=== PATIENT | female | born 1970 | race Caucasian/White ===

== ENCOUNTER 2019-10-18 13:13 | Inpatient (IN) ==
[2019-10-18 15:47] LABS: BASOPHILS % (AUTO) 0 % (0.2-1.0); HEMATOCRIT 41.5 % (36.0-47.0); HEMOGLOBIN 13.9 g/dL (12.0-16.0); LYMPHOCYTES # (AUTO) 0.5 X10^3/uL (1.3-2.9); MEAN CORPUSCULAR HEMOGLOBIN 30.2 pg (27.0-34.0); MEAN CORPUSCULAR HGB CONC 33.4 g/dL (33.0-35.0); MEAN CORPUSCULAR VOLUME 90.4 fL (80.0-100.0); MEAN PLATELET VOLUME 7.7 fL (7.4-11.0); MONOCYTES # (AUTO) 0.7 x10^3/uL (0.3-0.8); NEUTROPHILS # (AUTO) 1.2 x10^3/uL (2.2-4.8); PLATELET COUNT 77 X10^3/uL (150.0-450.0); RED BLOOD COUNT 4.59 X10^6/uL (3.5-5.4); RED CELL DISTRIBUTION WIDTH 17.4 % (11.6-16.5); WHITE BLOOD COUNT 2.4 X10^3/uL (3.6-10.0)
--- NOTE | 2019-10-18 15:57 | RAD ---
HISTORYPLEURITIC PAIN, N/VSTUDYCHEST, 1 VIEWCOMPARISONNone availableFINDINGSThe trachea is midline. The cardiac silhouette is unremarkable . The lungs are clear without focal infiltrate or effusion. The bony thorax is unremarkable.[Left-sided subclavian central venous catheter has its tip terminating within the upper SVC.]IMPRESSIONNo acute cardiopulmonary disease.Electronically signed by: OWEN FOREMAN (Oct 18, 2019 15:55:18)
[2019-10-18 16:16] LABS: ALANINE AMINOTRANSFERASE 18 Units/L (12-78); ALBUMIN 4.1 g/dL (3.4-5.0); ALKALINE PHOSPHATASE 68 Units/L (46-116); ASPARTATE AMINO TRANSFERASE 23 Units/L (15-37); BLOOD UREA NITROGEN 5 mg/dL (7-18); CALCIUM 9.3 mg/dL (8.5-10.1); CHLORIDE 103 mmol/L (98-107); CREATININE 1.11 mg/dL (0.55-1.02); SODIUM 142 mmol/L (136-145); TOTAL PROTEIN 7.6 g/dL (6.4-8.2); eGFR NON BLACK RACES 55 (>60)
[2019-10-18 16:30] LABS: BAND NEUTROPHILS % 1 % (0-10)
[2019-10-18 16:31] LABS: PLATELET MORPHOLOGY COMMENT NORMAL (NORMAL); POIKILOCYTOSIS SLIGHT
[2019-10-18] MEDS ORDERED: KLOR-CON PO PRN (16:33)
[2019-10-18] MEDS ORDERED: MICRO K EXTEN CAP 10 MEQ PO PRN (16:33)
[2019-10-18] MEDS ORDERED: POTASSIUM CHL 60 MEQ/NS 0.45% 500 ML IV PRN (16:33)
[2019-10-18] MEDS ORDERED: K-DUR TAB 20 MEQ PO PRN (16:33)
[2019-10-18] MEDS ORDERED: POTASSIUM CHL 40 MEQ/NS 0.45% 500 ML IV PRN (16:33)
[2019-10-18] MEDS ORDERED: POTASSIUM CHLORIDE LIQ 20 MEQ UDC PO PRN (16:33)
[2019-10-18] MEDS: NS 1000 ML 1,000 ML IV SCH (16:57)
[2019-10-18] MEDS: PHENERGAN INJ 25 MG IM PRN (16:59)
[2019-10-18 17:06] VITALS: BMI 19.1
[2019-10-18] MEDS: MAGNESIUM SULFATE 1 GRAM/100 mL PREMIX 1 GM/100 ML BAG IV PRN ×2 (17:10→18:27)
[2019-10-18] MEDS: MORPHINE SULFATE INJ 2 MG INJ IVP PRN ×2 (19:53→23:35)
[2019-10-18] MEDS: K-RIDER 10 MEQ/NS 100 ML 10 MEQ/100 ML BAG IV PRN ×2 (19:55→22:22)
[2019-10-18] MEDS: PROTONIX INJ 40 MG VIAL IVP SCH (21:22)
--- NOTE | 2019-10-18 22:35 | DR.H&P ---
H&P - History & Physical for Day of: H&P Date: 10/18/19 - Chief Complaint Chief Complaint: Nausea, vomiting with abdominal pain and fatique - History of Present Illness History of Present Illness: The patient is a 49yo WF who presents to [facility] with continued complaints of nausea, vomiting and abdominal pain. Complains of pain across upper abdomen. States she feels weak. Patient has history of metastatic colon cancer. Was recenty switched to another chemo tablet and since that time developed N/V/D and abdominal pain. Patient has stopped chemo tab x 3 weeks with no improvement of symptoms. Has received IVFs x 2 in office setting over last week. Is unable to keep new meds prescribed (Prilosec, Carafate). Previously had low potassium but was unable to keep tabs down. Denies fever. - Past Medical History Additional Medical History: Metastatic colon cancer (Lungs) - Past Surgical History Surgical History: Bowel Resection, Other - Family History Family Medical History: Hypertension - Social History Does patient currently use any type of tobacco product: No Have you used tobacco products in the last 12 months: No Type of Tobacco Use: None Does any household member use tobacco: No Alcohol Use: None Drug Use: None Prescription drug monitoring program results: PDMP reviewed and no concerns identified - Medications Home Medications: metoclopramide [From Reglan] Allergy (Verified 10/18/19 17:07) CONTINUE taking the following medications hydrocodone-acetaminophen 1 tab PO Q4H PRN 10/18/19 [History] sertraline 100 mg PO HS 10/18/19 [History] zolpidem 10 mg PO HS 10/18/19 [History] - Review of Systems Constitutional: Malaise Eyes: No Symptoms Reported ENT: No Symptoms Reported Respiratory: No Symptoms Reported Cardiovascular: No Symptoms Reported Gastrointestinal: See HPI, Nausea, Vomiting, Abdominal Pain, Diarrhea Genitourinary: No Symptoms Reported Musculoskeletal: Other (rib pain) Skin: No Symptoms Reported Neurological: No Symptoms Reported - Physical Exam Vital Signs: Temperature 98.2 F Pulse Rate [Left Brachial] 76 Respiratory Rate 18 Blood Pressure [Left Arm] 137/81 O2 Sat by Pulse Oximetry 100 Oriented: Normal Eyes: Normal Ear: Normal Nose: Normal Throat: Normal Respiratory: Clear Throughout Cardiovascular: Normal : Normal Auscultation: Bowel Sounds: Normal Palpation: Normal Tenderness: RUQ, LUQ, Epigastric, Moderate Skin: Decreased Turgur Musculoskeletal: Normal Psychiatric: Normal Mood Description: Calm Affect: Normal Speech Pattern: Clear - Assessment/Plan (1) Dehydration Status: Acute Plan: Labs, IV hydration (2) Hypokalemia Status: Acute Plan: Labs Supplementation as needed (3) Nausea & vomiting Status: Acute Plan: Phenergan IV, IV fluids, Clear Liquid Diet (4) Abdominal pain Status: Acute Plan: CT Abd/Pelvis with contrast (5) Metastatic colon cancer in female Status: Acute - Allergies Allergies/Adverse Reactions: Allergies Allergy/AdvReac Type Severity Reaction Status Date / Time metoclopramide [From Reglan] Allergy Verified 10/18/19 17:07
[2019-10-18] MEDS ORDERED: AMBIEN ONE (23:56)
[2019-10-19] MEDS: PHENERGAN INJ 25 MG IM PRN ×3 (00:01→19:53)
[2019-10-19] MEDS: AMBIEN PO PRN ×2 (00:01→21:07)
[2019-10-19] MEDS: K-RIDER 10 MEQ/NS 100 ML 10 MEQ/100 ML BAG IV PRN ×4 (00:02→03:30)
[2019-10-19] MEDS ORDERED: NORCO 7.5/325 MG TAB PO ONE (03:25)
[2019-10-19] MEDS ORDERED: NORCO 7.5/325 MG TAB ONE (03:27)
[2019-10-19 03:47] LABS: BILIRUBIN,URINE NEGATIVE (NEGATIVE); BLOOD/HEMOGLOBIN,URINE NEGATIVE (NEGATIVE); GLUCOSE, URINE NEGATIVE (NEGATIVE); KETONES,URINE NEGATIVE (NEGATIVE); LEUKOCYTE ESTERASE ,URINE NEGATIVE (NEGATIVE); NITRITES,URINE NEGATIVE (NEGATIVE); PROTEIN,URINE NEGATIVE (NEGATIVE); UROBILINOGEN,URINE NORMAL (NORMAL)
[2019-10-19 03:49] LABS: APPEARANCE,URINE CLEAR (CLEAR); COLOR,URINE PALE YELLOW (YELLOW)
[2019-10-19] MEDS: NS 1000 ML 1,000 ML IV SCH ×3 (05:03→16:05)
[2019-10-19 05:38] LABS: BASOPHILS % (AUTO) 0.5 % (0.2-1.0); EOSINOPHILS % (AUTO) 0.5 % (0.9-2.9); HEMATOCRIT 40.1 % (36.0-47.0); HEMOGLOBIN 13.5 g/dL (12.0-16.0); LYMPHOCYTES # (AUTO) 1.2 X10^3/uL (1.3-2.9); LYMPHOCYTES % (AUTO) 51.6 % (21.0-51.0); MEAN CORPUSCULAR HEMOGLOBIN 30.5 pg (27.0-34.0); MEAN CORPUSCULAR HGB CONC 33.7 g/dL (33.0-35.0); MEAN CORPUSCULAR VOLUME 90.4 fL (80.0-100.0); MEAN PLATELET VOLUME 7.7 fL (7.4-11.0); MONOCYTES # (AUTO) 0.3 x10^3/uL (0.3-0.8); MONOCYTES % (AUTO) 10.9 % (0.0-13.0); NEUTROPHILS # (AUTO) 0.8 x10^3/uL (2.2-4.8); NEUTROPHILS % (AUTO) 36.5 % (42.0-75.0); PLATELET COUNT 79 X10^3/uL (150.0-450.0); RED BLOOD COUNT 4.44 X10^6/uL (3.5-5.4); WHITE BLOOD COUNT 2.3 X10^3/uL (3.6-10.0)
[2019-10-19 05:39] LABS: ALANINE AMINOTRANSFERASE 18 Units/L (12-78); ALBUMIN 3.8 g/dL (3.4-5.0); ALKALINE PHOSPHATASE 64 Units/L (46-116); ASPARTATE AMINO TRANSFERASE 26 Units/L (15-37); BLOOD UREA NITROGEN 4 mg/dL (7-18); CARBON DIOXIDE 28.2 mmol/L (21-32); CHLORIDE 105 mmol/L (98-107); CREATININE 1.12 mg/dL (0.55-1.02); MAGNESIUM 2.2 mg/dL (1.7-2.9); SODIUM 142 mmol/L (136-145); TOTAL PROTEIN 7.2 g/dL (6.4-8.2); eGFR NON BLACK RACES 55 (>60)
[2019-10-19 05:56] LABS: PLATELET MORPHOLOGY COMMENT NORMAL (NORMAL)
[2019-10-19] MEDS: PROTONIX INJ 40 MG VIAL IVP SCH ×2 (08:59→21:06)
--- NOTE | 2019-10-19 09:00 | CT ---
HISTORYUPPER ABD PAIN, history of colon cancer with colon resection and cholecystectomy.STUDYABDOMEN/PELVIS WITH CONCOMPARISONNoneTECHNIQUEMultiple axial images of the abdomen and pelvis were obtained from the lung bases to the pubic symphysis after the administration of IV contrast. Dose reduction techniques including Automated Exposure Control (AEC) and adjustment of mA and kV were utilized.FINDINGSThere is a lobular possibly partially cavitary nodule right lung base measuring 1 cm seen on image 2. There are small broad-based a mildly spiculated nodule is seen measuring 7 by 6 mm on image 8 another nodular density that appears cavitary is seen on image 11 right lower lobe medially measuring 8 mm. Pleural nodules posteriorly bilaterally. The liver, spleen, pancreas, kidneys, and adrenal glands are unremarkable in their CT appearance. The gallbladder surgically absent and there are surgical clips in the gallbladder fossa.. No significant mesenteric lymphadenopathy or stranding can be observed. The abdominal aorta and IVC are normal there is no aneurysm or retroperitoneal adenopathy. No free fluid or free air is seen within the abdomen. No bowel wall thickening is present. The jejunum is well opacified with oral contrast and normal in caliber. The ileum is fluid filled and the contrast has not yet reached the ileum the ileal bowel loops are mildly distended at 3 cm in the pelvis. A short segment of ileal narrowing is seen on image 72 on the axial images this may represent a stricture or an adhesion causing early or mild small bowel obstruction. The patient has undergone a right hemicolectomy. This surgical anastomosis in the right upper quadrant just inferior to the liver appears patent. The colon is normal in caliber without obstruction or wall thickening. Diverticulosis without diverticulitis is seen in the pelvis. The bladder is unremarkable. The uterus is unremarkable. The inguinal femoral region is normal. The colon is unremarkable. Specifically, there is no diverticulosis noted within the sigmoid colon. The urinary bladder is grossly unremarkable. The bony structures are grossly intact.IMPRESSIONMultiple very small bilateral posterior pleural based nodules with 2 cavitary nodule and 1 non cavitary nodule in the right lower lobe suspicious for metastatic foci.Status post cholecystectomy and right hemicolectomy.The ileal colonic anastomosis in the right upper quadrant appears patent.There is sigmoid diverticulosis without diverticulitis.Mild ileal distended fluid filled ileal loops are observed there is a ileal loop that appears narrowed over a length of 1.8 cm that may be a stricture this lies in the right lower quadrant just anterior to the iliac vessels and may be a site of partial or early small bowel obstruction see axial image 72 coronal image 15 and 14. Maximal distention of the terminal ileal loops is 3 cm. Recommend short interval follow-up radiographically with plain filmsElectronically signed by: MARLO FAY (Oct 19, 2019 08:59:36)
[2019-10-19 09:54] LABS: AMYLASE 38 Units/L (25-115); LIPASE 103 Units/L (73-393)
[2019-10-19] MEDS: NORCO 10/325 TAB PO PRN ×2 (13:43→21:07)
[2019-10-19] MEDS ORDERED: ZOLOFT PO ONE (20:11)
[2019-10-19] MEDS: ZOLOFT PO SCH (21:06)
[2019-10-19 21:58] LABS: CRYPTOSPORIDIUM PARVUM ANTIGEN NEGATIVE (NEGATIVE); GIARDIA LAMBLIA ANTIGEN NEGATIVE (NEGATIVE)
[2019-10-20 05:50] LABS: BASOPHILS % (AUTO) 0.6 % (0.2-1.0); EOSINOPHILS % (AUTO) 0.8 % (0.9-2.9); HEMATOCRIT 36.4 % (36.0-47.0); HEMOGLOBIN 12.2 g/dL (12.0-16.0); LYMPHOCYTES # (AUTO) 1.3 X10^3/uL (1.3-2.9); LYMPHOCYTES % (AUTO) 51.1 % (21.0-51.0); MEAN CORPUSCULAR HEMOGLOBIN 30.7 pg (27.0-34.0); MEAN CORPUSCULAR HGB CONC 33.6 g/dL (33.0-35.0); MEAN CORPUSCULAR VOLUME 91.4 fL (80.0-100.0); MEAN PLATELET VOLUME 8.1 fL (7.4-11.0); MONOCYTES # (AUTO) 0.3 x10^3/uL (0.3-0.8); MONOCYTES % (AUTO) 10.1 % (0.0-13.0); NEUTROPHILS # (AUTO) 0.9 x10^3/uL (2.2-4.8); NEUTROPHILS % (AUTO) 37.4 % (42.0-75.0); PLATELET COUNT 75 X10^3/uL (150.0-450.0); RED BLOOD COUNT 3.98 X10^6/uL (3.5-5.4); RED CELL DISTRIBUTION WIDTH 17.1 % (11.6-16.5); WHITE BLOOD COUNT 2.5 X10^3/uL (3.6-10.0)
[2019-10-20 06:04] LABS: ALANINE AMINOTRANSFERASE 18 Units/L (12-78); ALBUMIN 3.3 g/dL (3.4-5.0); ALKALINE PHOSPHATASE 52 Units/L (46-116); ASPARTATE AMINO TRANSFERASE 27 Units/L (15-37); BLOOD UREA NITROGEN 4 mg/dL (7-18); CALCIUM 8.4 mg/dL (8.5-10.1); CARBON DIOXIDE 27.1 mmol/L (21-32); CHLORIDE 108 mmol/L (98-107); CREATININE 1.07 mg/dL (0.55-1.02); SODIUM 143 mmol/L (136-145); TOTAL PROTEIN 6.2 g/dL (6.4-8.2); eGFR NON BLACK RACES 57 (>60)
[2019-10-20] MEDS: NS 1000 ML 1,000 ML IV SCH ×2 (06:57→18:18)
[2019-10-20] MEDS: PROTONIX INJ 40 MG VIAL IVP SCH ×2 (09:20→20:37)
--- NOTE | 2019-10-20 09:28 | RAD ---
Exam:KUBIndication: ABD PAIN, ABNORMAL CT, ILEUS VS. SBOComparison: [None available]Findings: [The bowel gas pattern is unremarkable, specifically there is no radiographic evidence to suggest an obstruction. Contrast is noted opacifying the transverse colon. No free air or pneumatosis.No definite mass or abnormal calcification within the abdomen or pelvis.No acute osseous abnormality. Previous cholecystectomy is noted.Impression:Nonspecific bowel gas pattern, specifically no evidence of obstruction or convincing evidence of an ileus.Electronically signed by: OWEN FOREMAN (Oct 20, 2019 09:26:59)
[2019-10-20] MEDS: ZOFRAN INJ 4 MG VIAL IVP PRN ×2 (09:29→16:45)
--- NOTE | 2019-10-20 12:32 | DR.PROGNOT ---
Hospital Progress Notes - Progress Note for Day of: Progress Note Date: 10/20/19 - Chief Complaint Chief Complaint: c/o severe nausea today . could not tolerate food , no vomiting . c/o upper and mid abdominal pain. abdominal xray showed no obstruction . - Past Medical Family Social History Past Med/Fam/Surg Hx: No changes since H&P Allergies: Allergies metoclopramide [From Reglan] Allergy (Verified 10/18/19 17:07) - Review Of Systems ROS: No change since H&P - Vital Signs Vital Signs: Temperature 98.5 F Pulse Rate [Left Brachial] 52 Respiratory Rate 18 Blood Pressure [Left Arm] 141/85 O2 Sat by Pulse Oximetry 98 - Physical Exam Oriented: Normal Eyes: Normal Ear: Normal Nose: Normal Throat: Normal Cardiovascular: Normal : Normal GI:Auscultation: Normal GI:Palpation: Normal GI: Tenderness: Other (soft, flat abdomen with moderate epigastric and LUQ tenderness , no rebound . BS+) Skin: Decreased Turgur Musculoskeletal: Normal Psychiatric: Normal Mood Description: Calm Affect: Normal Speech Pattern: Clear, Appropriate - Laboratory and Diagnostics Result Diagrams: 10/20/19 04:25 10/20/19 04:25 Labs: 10/18/19 15:12 Blood Blood Culture - Preliminary 10/18/19 15:07 Blood Blood Culture - Preliminary 10/19/19 20:15 Stool - Final Laboratory WBC 2.5 X10^3/uL (3.6-10.0) L 10/20/19 04:25 RBC 3.98 X10^6/uL (3.5-5.4) 10/20/19 04:25 Hgb 12.2 g/dL (12.0-16.0) 10/20/19 04:25 Hct 36.4 % (36.0-47.0) 10/20/19 04:25 MCV 91.4 fL (80.0-100.0) 10/20/19 04:25 MCH 30.7 pg (27.0-34.0) 10/20/19 04:25 MCHC 33.6 g/dL (33.0-35.0) 10/20/19 04:25 RDW 17.1 % (11.6-16.5) H 10/20/19 04:25 Plt Count 75 X10^3/uL (150.0-450.0) L 10/20/19 04:25 Plt Count Comment Decreased (ADEQUATE) A 10/19/19 04:03 MPV 8.1 fL (7.4-11.0) 10/20/19 04:25 Neut % (Auto) 37.4 % (42.0-75.0) L 10/20/19 04:25 Lymph % (Auto) 51.1 % (21.0-51.0) H 10/20/19 04:25 [place] % (Auto) 10.1 % (0.0-13.0) 10/20/19 04:25 Eos % (Auto) 0.8 % (0.9-2.9) L 10/20/19 04:25 Baso % (Auto) 0.6 % (0.2-1.0) 10/20/19 04:25 Neut # (Auto) 0.9 x10^3/uL (2.2-4.8) L 10/20/19 04:25 Lymph # (Auto) 1.3 X10^3/uL (1.3-2.9) 10/20/19 04:25 [place] # (Auto) 0.3 x10^3/uL (0.3-0.8) 10/20/19 04:25 Eos # (Auto) 0.0 x10^3/uL (0.0-0.2) 10/20/19 04:25 Baso # (Auto) 0.0 X10^3/uL (0.0-0.1) 10/20/19 04:25 Absolute Nucleated RBC 0.2 /100WBC 10/20/19 04:25 Total Counted 100 10/19/19 04:03 Neutrophils % (Manual) 39 % (39-76) 10/19/19 04:03 Band Neutrophils % 1 % (0-10) 10/18/19 15:07 Lymphocytes % (Manual) 49 % (13-43) H 10/19/19 04:03 Monocytes % (Manual) 12 % (4-9) H 10/19/19 04:03 Plt Morphology Comment Normal (NORMAL) 10/19/19 04:03 RBC Morphology Normal (NORMAL) 10/19/19 04:03 Poikilocytosis Slight A 10/18/19 15:07 Sodium 143 mmol/L (136-145) 10/20/19 04:25 Corrected Sodium TNP 10/20/19 04:25 Potassium 3.7 mmol/L (3.5-5.1) 10/20/19 04:25 Chloride 108 mmol/L (98-107) H 10/20/19 04:25 Carbon Dioxide 27.1 mmol/L (21-32) 10/20/19 04:25 BUN 4 mg/dL (7-18) L 10/20/19 04:25 Creatinine 1.07 mg/dL (0.55-1.02) H 10/20/19 04:25 Est GFR (MDRD) Af Amer > 60 (>60) 10/20/19 04:25 Est GFR (MDRD) Non-Af 57 (>60) L 10/20/19 04:25 Glucose 77 mg/dL (65-99) 10/20/19 04:25 Calcium 8.4 mg/dL (8.5-10.1) L 10/20/19 04:25 Corrected Calcium 9.0 mg/dL (8.5-10.1) 10/20/19 04:25 Magnesium 2.2 mg/dL (1.7-2.9) 10/19/19 04:03 Total Bilirubin 0.80 mg/dL (0.2-1.0) 10/20/19 04:25 AST 27 Units/L (15-37) 10/20/19 04:25 ALT 18 Units/L (12-78) 10/20/19 04:25 Alkaline Phosphatase 52 Units/L (46-116) 10/20/19 04:25 Total Protein 6.2 g/dL (6.4-8.2) L 10/20/19 04:25 Albumin 3.3 g/dL (3.4-5.0) L 10/20/19 04:25 Globulin 2.9 g/dL (2.5-4.5) 10/20/19 04:25 Albumin/Globulin Ratio 1.1 Ratio (1.1-2.1) 10/20/19 04:25 Amylase 38 Units/L (25-115) 10/19/19 04:03 Lipase 103 Units/L (73-393) 10/19/19 04:03 Specimen Type Clean catch urine 10/19/19 03:09 Urine Color Pale yellow (YELLOW) 10/19/19 03:09 Urine Appearance Clear (CLEAR) 10/19/19 03:09 Urine pH 7.0 (5.0 - 8.0) 10/19/19 03:09 Ur Specific [place] 1.010 (1.000-1.030) 10/19/19 03:09 Urine Protein Negative (NEGATIVE) 10/19/19 03:09 Urine Glucose (UA) Negative (NEGATIVE) 10/19/19 03:09 Urine Ketones Negative (NEGATIVE) 10/19/19 03:09 Urine Occult Blood Negative (NEGATIVE) 10/19/19 03:09 Urine Nitrite Negative (NEGATIVE) 10/19/19 03:09 Urine Bilirubin Negative (NEGATIVE) 10/19/19 03:09 Urine Urobilinogen Normal (NORMAL) 10/19/19 03:09 Ur Leukocyte Esterase Negative (NEGATIVE) 10/19/19 03:09 Stool Description 100 grs brn loose 10/19/19 20:15 Stool Description 100 grs brown loose 10/19/19 20:15 Stl Occult Blood (IFOB) Negative (NEGATIVE) 10/19/19 20:15 Stool for White Cells Negative (NEGATIVE) 10/19/19 20:15 Stl C. diff Tox B Gene Negative (NEGATIVE) 10/19/19 20:15 Stl C. diff 027-NAP1-BI Negative (NEGATIVE) 10/19/19 20:15 Cryptosporid parvum Ag Negative (NEGATIVE) 10/19/19 20:15 Giardia lamblia Ag Negative (NEGATIVE) 10/19/19 20:15 - Assessment and Plan 1: subsiding partial SBO . moderate ileus with recent chemo Tx . dehydration and hypokalemia ( corrected ). to add few doses of steroids to help the nausea and inflamation of the small bowel . - Problem Patient Problems: Patient Problems Dehydration (Acute) E86.0 Hypokalemia (Acute) E87.6 Nausea & vomiting (Acute) R11.2 Abdominal pain (Acute) R10.9 Metastatic colon cancer in female (Acute) C18.9
[2019-10-20] MEDS: NORCO 10/325 TAB PO PRN ×2 (15:10→20:39)
[2019-10-20] MEDS ORDERED: ZOLOFT PO ONE (19:04)
[2019-10-20] MEDS: ZOLOFT PO SCH (20:38)
[2019-10-20] MEDS: SOLU-Medrol 40 MG VIAL IVP SCH (20:38)
[2019-10-20] MEDS: AMBIEN PO PRN (20:39)
[2019-10-20] MEDS: PHENERGAN INJ 25 MG IM PRN (21:03)
[2019-10-21] MEDS: ZOFRAN INJ 4 MG VIAL IVP PRN ×2 (01:11→11:50)
[2019-10-21] MEDS: NORCO 10/325 TAB PO PRN (04:06)
[2019-10-21 05:37] LABS: BASOPHILS % (AUTO) 0.2 % (0.2-1.0); HEMATOCRIT 38.4 % (36.0-47.0); HEMOGLOBIN 12.9 g/dL (12.0-16.0); LYMPHOCYTES # (AUTO) 0.3 X10^3/uL (1.3-2.9); LYMPHOCYTES % (AUTO) 13.9 % (21.0-51.0); MEAN CORPUSCULAR HEMOGLOBIN 30.8 pg (27.0-34.0); MEAN CORPUSCULAR HGB CONC 33.7 g/dL (33.0-35.0); MEAN CORPUSCULAR VOLUME 91.4 fL (80.0-100.0); MEAN PLATELET VOLUME 8.3 fL (7.4-11.0); MONOCYTES # (AUTO) 0 x10^3/uL (0.3-0.8); MONOCYTES % (AUTO) 1.2 % (0.0-13.0); NEUTROPHILS # (AUTO) 1.5 x10^3/uL (2.2-4.8); NEUTROPHILS % (AUTO) 84.7 % (42.0-75.0); PLATELET COUNT 73 X10^3/uL (150.0-450.0); RED CELL DISTRIBUTION WIDTH 16.8 % (11.6-16.5)
[2019-10-21 05:55] LABS: ALANINE AMINOTRANSFERASE 31 Units/L (12-78); ALBUMIN 3.5 g/dL (3.4-5.0); ALKALINE PHOSPHATASE 59 Units/L (46-116); ASPARTATE AMINO TRANSFERASE 41 Units/L (15-37); BLOOD UREA NITROGEN 5 mg/dL (7-18); CALCIUM 8.5 mg/dL (8.5-10.1); CARBON DIOXIDE 27.2 mmol/L (21-32); CHLORIDE 105 mmol/L (98-107); COR NA(FOR HYPERGLY) 143 mmol/L (136-145); SODIUM 141 mmol/L (136-145); TOTAL PROTEIN 6.7 g/dL (6.4-8.2); eGFR NON BLACK RACES 50 (>60)
[2019-10-21 06:09] LABS: BAND NEUTROPHILS % 2 % (0-10); WHITE BLOOD COUNT 1.8 X10^3/uL (3.6-10.0)
[2019-10-21 06:10] LABS: PLATELET MORPHOLOGY COMMENT NORMAL (NORMAL)
[2019-10-21] MEDS: PROTONIX INJ 40 MG VIAL IVP SCH (08:48)
[2019-10-21] MEDS: SOLU-Medrol 40 MG VIAL IVP SCH (08:49)
[2019-10-21] MEDS: NS 1000 ML 1,000 ML IV SCH (10:20)
--- NOTE | 2019-10-21 11:08 | DR.PROGNOT ---
Hospital Progress Notes - Progress Note for Day of: Progress Note Date: 10/21/19 - Chief Complaint Chief Complaint: feeling better today and was able to tolerate oral intake . having loose BM , no bleeding . C Dif negative . WBC 1.8 . platelets 7.3. afebrile .. - Past Medical Family Social History Past Med/Fam/Surg Hx: No changes since H&P Allergies: Allergies metoclopramide [From Reglan] Allergy (Verified 10/18/19 17:07) - Review Of Systems ROS: No change since H&P - Vital Signs Vital Signs: Temperature 98.1 F Pulse Rate [Left Brachial] 71 Respiratory Rate 18 Blood Pressure [Left Arm] 127/76 O2 Sat by Pulse Oximetry 96 - Physical Exam Oriented: Normal Eyes: Normal Ear: Normal Nose: Normal Throat: Normal Cardiovascular: Normal : Normal GI:Auscultation: Normal GI:Palpation: Normal GI: Tenderness: Other (soft, flat abdomen with moderate epigastric and LUQ tenderness , no rebound . BS+) Skin: Decreased Turgur Musculoskeletal: Normal Psychiatric: Normal Mood Description: Calm Affect: Normal Speech Pattern: Clear, Appropriate - Laboratory and Diagnostics Result Diagrams: 10/21/19 04:01 10/21/19 04:01 Labs: 10/19/19 20:15 Stool Stool Culture - Preliminary 10/19/19 20:15 Stool - Final 10/18/19 15:12 Blood Blood Culture - Preliminary 10/18/19 15:07 Blood Blood Culture - Preliminary Laboratory WBC 1.8 X10^3/uL (3.6-10.0) L* 10/21/19 04:01 RBC 4.20 X10^6/uL (3.5-5.4) 10/21/19 04:01 Hgb 12.9 g/dL (12.0-16.0) 10/21/19 04:01 Hct 38.4 % (36.0-47.0) 10/21/19 04:01 MCV 91.4 fL (80.0-100.0) 10/21/19 04:01 MCH 30.8 pg (27.0-34.0) 10/21/19 04:01 MCHC 33.7 g/dL (33.0-35.0) 10/21/19 04:01 RDW 16.8 % (11.6-16.5) H 10/21/19 04:01 Plt Count 73 X10^3/uL (150.0-450.0) L 10/21/19 04:01 Plt Count Comment Decreased (ADEQUATE) A 10/21/19 04:01 MPV 8.3 fL (7.4-11.0) 10/21/19 04:01 Neut % (Auto) 84.7 % (42.0-75.0) H 10/21/19 04:01 Lymph % (Auto) 13.9 % (21.0-51.0) L 10/21/19 04:01 [place] % (Auto) 1.2 % (0.0-13.0) 10/21/19 04:01 Eos % (Auto) 0.0 % (0.9-2.9) L 10/21/19 04:01 Baso % (Auto) 0.2 % (0.2-1.0) 10/21/19 04:01 Neut # (Auto) 1.5 x10^3/uL (2.2-4.8) L 10/21/19 04:01 Lymph # (Auto) 0.3 X10^3/uL (1.3-2.9) L 10/21/19 04:01 [place] # (Auto) 0 x10^3/uL (0.3-0.8) L 10/21/19 04:01 Eos # (Auto) 0.0 x10^3/uL (0.0-0.2) 10/21/19 04:01 Baso # (Auto) 0.0 X10^3/uL (0.0-0.1) 10/21/19 04:01 Absolute Nucleated RBC 0.0 /100WBC 10/21/19 04:01 Total Counted 50 10/21/19 04:01 Neutrophils % (Manual) 82 % (39-76) H 10/21/19 04:01 Band Neutrophils % 2 % (0-10) 10/21/19 04:01 Lymphocytes % (Manual) 14 % (13-43) 10/21/19 04:01 Monocytes % (Manual) 2 % (4-9) L 10/21/19 04:01 Plt Morphology Comment Normal (NORMAL) 10/21/19 04:01 RBC Morphology Normal (NORMAL) 10/21/19 04:01 Poikilocytosis Slight A 10/18/19 15:07 Sodium 141 mmol/L (136-145) 10/21/19 04:01 Corrected Sodium 143 mmol/L (136-145) 10/21/19 04:01 Potassium 3.7 mmol/L (3.5-5.1) 10/21/19 04:01 Chloride 105 mmol/L (98-107) 10/21/19 04:01 Carbon Dioxide 27.2 mmol/L (21-32) 10/21/19 04:01 BUN 5 mg/dL (7-18) L 10/21/19 04:01 Creatinine 1.20 mg/dL (0.55-1.02) H 10/21/19 04:01 Est GFR (MDRD) Af Amer > 60 (>60) 10/21/19 04:01 Est GFR (MDRD) Non-Af 50 (>60) L 10/21/19 04:01 Glucose 177 mg/dL (65-99) H 10/21/19 04:01 Calcium 8.5 mg/dL (8.5-10.1) 10/21/19 04:01 Corrected Calcium TNP 10/21/19 04:01 Magnesium 2.2 mg/dL (1.7-2.9) 10/19/19 04:03 Total Bilirubin 0.70 mg/dL (0.2-1.0) 10/21/19 04:01 AST 41 Units/L (15-37) H 10/21/19 04:01 ALT 31 Units/L (12-78) 10/21/19 04:01 Alkaline Phosphatase 59 Units/L (46-116) 10/21/19 04:01 Total Protein 6.7 g/dL (6.4-8.2) 10/21/19 04:01 Albumin 3.5 g/dL (3.4-5.0) 10/21/19 04:01 Globulin 3.2 g/dL (2.5-4.5) 10/21/19 04:01 Albumin/Globulin Ratio 1.1 Ratio (1.1-2.1) 10/21/19 04:01 Amylase 38 Units/L (25-115) 10/19/19 04:03 Lipase 103 Units/L (73-393) 10/19/19 04:03 Specimen Type Clean catch urine 10/19/19 03:09 Urine Color Pale yellow (YELLOW) 10/19/19 03:09 Urine Appearance Clear (CLEAR) 10/19/19 03:09 Urine pH 7.0 (5.0 - 8.0) 10/19/19 03:09 Ur Specific [place] 1.010 (1.000-1.030) 10/19/19 03:09 Urine Protein Negative (NEGATIVE) 10/19/19 03:09 Urine Glucose (UA) Negative (NEGATIVE) 10/19/19 03:09 Urine Ketones Negative (NEGATIVE) 10/19/19 03:09 Urine Occult Blood Negative (NEGATIVE) 10/19/19 03:09 Urine Nitrite Negative (NEGATIVE) 10/19/19 03:09 Urine Bilirubin Negative (NEGATIVE) 10/19/19 03:09 Urine Urobilinogen Normal (NORMAL) 10/19/19 03:09 Ur Leukocyte Esterase Negative (NEGATIVE) 10/19/19 03:09 Stool Description 100 grs brn loose 10/19/19 20:15 Stool Description 100 grs brown loose 10/19/19 20:15 Stl Occult Blood (IFOB) Negative (NEGATIVE) 10/19/19 20:15 Stool for White Cells Negative (NEGATIVE) 10/19/19 20:15 Stl C. diff Tox B Gene Negative (NEGATIVE) 10/19/19 20:15 Stl C. diff 027-NAP1-BI Negative (NEGATIVE) 10/19/19 20:15 Cryptosporid parvum Ag Negative (NEGATIVE) 10/19/19 20:15 Giardia lamblia Ag Negative (NEGATIVE) 10/19/19 20:15 - Assessment and Plan 1: subsiding partial SBO . moderate ileus with recent chemo Tx . dehydration and hypokalemia ( corrected ). to continue steroids to help the nausea and inflamation of the small bowel . will follow as out Pt .. Pt needs GI endoscopy as out Pt . - Problem Patient Problems: Patient Problems Dehydration (Acute) E86.0 Hypokalemia (Acute) E87.6 Nausea & vomiting (Acute) R11.2 Abdominal pain (Acute) R10.9 Metastatic colon cancer in female (Acute) C18.9
[2019-10-21 12:56] VITALS: BP 138/84
[2019-10-21] MEDS ORDERED: SOLU-Medrol 40 MG VIAL IVP SCH ×2 (15:00→21:00)
== END 2019-10-21 15:40 | disposition home or self-care (01) | DRG 389 ==
LOC: MED/SURG 14:20
PROVIDERS: ADMIT Internal Medicine; ATTEND Internal Medicine
DX: E86.0 Dehydration; R11.2 Nausea with vomiting, unspecified; R53.1 Weakness; R10.84 Generalized abdominal pain; E87.6 Hypokalemia; K56.7 Ileus, unspecified; C18.9 Malignant neoplasm of colon, unspecified; C79.9 Secondary malignant neoplasm of unspecified site; Z92.21 Personal history of antineoplastic chemotherapy